=== PATIENT | female | born 1930 | race African-American/Black ===

== ENCOUNTER 2017-01-31 18:32 | Inpatient (IN) | payer OTHER ==
[~2017-01-31] VITALS: Ht 162.6 cm; Wt 68.5 kg
--- NOTE | ~2017-01-31 | EKG ---
[address] [address] ELECTROCARDIOGRAM REPORT Name: ALEXANDRA RAMIREZ Room #: 438-P DIS IN M.R.#: [id number] Admission: 01/31/17 Attend Phys: Geronimo Herzog MD Discharge: 02/08/17 Date of : [birth year] Report #: [id number] THIS REPORT FOR: //name// [facility] Test Date: 2017-02-07 Test Time: 14:51:54 Pat Name: ALEXANDRA RAMIREZ Department: Room: 438 P Gender: F Assistant Facility Manager: Adry PALACIOS : 1930 Requested By: Hao Mondragon Order Number: [id number] MD: Sonny Tse Measurements Intervals [place] Rate: 85 P: 43 VA: 133 QRS: -18 QRSD: 85 T: 4 QT: 359 QTc: 427 Interpretive Statements Sinus rhythm Inferior infarct, old Compared to ECG 03/27/2016 13:59:03 Myocardial infarct finding now present T-wave abnormality no longer present Electronically Signed On 02-11-2017 21:52:19 CDT by Sonny Tse [email or web address] <ELECTRONICALLY SIGNED> By: Sonny Tse MD 02/11/17 2152 1451 1451 Sonny Tse MD /EPI
--- NOTE | ~2017-01-31 | HC ---
[facility] [address] CONSULTATION Name: ALEXANDRA RAMIREZ Room #: 438-P ADM IN M.R.#: [id number] Admission: 01/31/17 Attend Phys: Geronimo Herzog MD Discharge: Date of : [birth year] Report #: [id number] THIS REPORT FOR: //name// CC: Krunal eHrzog REASON FOR CONSULTATION: I was asked to evaluate concerning left lower extremity nonhealing wound and cellulitis. HISTORY OF PRESENT ILLNESS: The patient is an 86-year-old with underlying history of chronic venous stasis disease, hypertension. She has had wound to the left foot and ankle for an extended period of time. She has been treated this at home with home health nursing. Wounds have worsened and hospitalized for further care. No fever, chills or sweats. She has a moderate amount of pain in the foot. The patient was not a very good historian. ALLERGIES: CLONIDINE. MEDICATIONS: As noted on her MAR, now on Zosyn and vancomycin. PAST MEDICAL HISTORY: Venous stasis disease, hypertension, hyperlipidemia and wound to her left foot and ankle. FAMILY HISTORY: Noncontributory. SOCIAL HISTORY: Nonsmoker, no significant alcohol intake. REVIEW OF SYSTEMS: Denies any cough, sputum, nausea, vomiting, diarrhea, or dysuria. PHYSICAL EXAMINATION: VITAL SIGNS: She is afebrile, hemodynamically stable. GENERAL: She was alert and cooperative and pleasant, in no acute distress. Oxygen saturation was normal on room air. HEENT: Unremarkable other than only a few teeth remaining. NECK: Supple. LUNGS: Clear. HEART: Regular, without murmur. ABDOMEN: Soft and nontender. Moderately obese. EXTREMITIES: Pulses in the left leg femoral region were normal. Diminished pulses in her feet. Had extensive granulating wound over the dorsum of her left foot and ankle region. Changes of venous stasis. 2+ edema. Sensation in the toes adequate. Reasonable capillary refill. WOUND: There was a small amount of serous drainage, no gross purulence. She had no lymphangitis going up the calf or the thigh. [facility] [address] [place] [address] CONSULTATION Name: ALEXANDRA RAMIREZ Room #: 438-P ADM IN M.R.#: [id number] Admission: 01/31/17 Attend Phys: Geronimo Herzog MD Discharge: Date of : [birth year] Report #: [id number] LABORATORY STUDIES: Sodium 134, potassium 3.6, bicarbonate 30, creatinine 1.2. Hemoglobin 9.4, WBC 11.1, platelet count 272,000. Sedimentation rate 84. Liver function test normal. Ultrasound of lower extremities are currently pending. Wound culture from the left foot wound is pending. It is noted that the arterial studies from a year ago showed no focal high grade stenosis. IMPRESSION AND PLAN: An 86-year-old with left lower extremity venous stasis ulcer, concerning for vascular disease as well. This area is nonhealing from current outpatient therapy. Recommend continuing IV antibiotic therapy pending culture results. Agree with arterial ultrasound and x-ray. We will make further recommendations pending the studies. <ELECTRONICALLY SIGNED> By: Hao Mondragon MD 02/02/17 1127 1211 1231 Hao Mondragon MD /nt
--- NOTE | ~2017-01-31 | HC ---
[facility] [place] [address] [address] CONSULTATION Name: ALEXANDRA RAMIREZ Room #: 438-P ADM IN M.R.#: [id number] Admission: 01/31/17 Attend Phys: Geronimo Herzog MD Discharge: Date of : [birth year] Report #: [id number] THIS REPORT FOR: //name// CC: Krunal Herzog DATE OF SERVICE: 02/01/2017 CHIEF COMPLAINT: Left lower extremity cellulitis and chronic ulcerations. HISTORY: This is an 86-year-old female patient with whom I am familiar, having seen her in the clinic yesterday. I discussed her care with the hospitalist and felt that she would require inpatient hospitalization for newly circumferential ulcerations of her left lower extremity with significant wound infection and surrounding cellulitis of the left lower extremity in the face of significant vascular disease. She has rested well overnight tonight and is feeling somewhat better, but states that she still has pain in her leg. PAST MEDICAL HISTORY: Positive for history of venous stasis disease, peripheral arterial disease and hyperlipidemia. FAMILY HISTORY: Noncontributory. SOCIAL HISTORY: The patient denies history of alcohol or tobacco use. ALLERGIES: TO CLONIDINE. REVIEW OF SYSTEMS: CONSTITUTIONAL: The patient denies fever, chills or weight loss. NEUROLOGICAL: The patient denies focal weakness, numbness or tingling. ENT: The patient denies earache, nasal drainage or sore throat. CARDIOVASCULAR: The patient denies chest pain, palpitations or diaphoresis. PULMONARY: The patient denies cough or shortness of breath. GASTROINTESTINAL: The patient denies nausea, vomiting, diarrhea or abdominal pain. ORTHOPEDIC: The patient complains of severe pain in her left lower extremity with drainage and odor. Other systems in a 12-point review of systems are negative. PHYSICAL EXAMINATION: VITAL SIGNS: At this time include pulse rate 83, respiratory rate of 20, blood pressure 118/61 and temperature 99.2. GENERAL: This is a chronically ill-appearing female patient, appears to be in minimal distress. [address] [address] CONSULTATION Name: ALEXANDRA RAMIREZ Room #: 438- ADM IN M.R.#: [id number] Admission: 01/31/17 Attend Phys: Geronimo Herzog MD Discharge: Date of : [birth year] Report #: [id number] HEAD: Normocephalic. NOSE AND THROAT: Clear. NECK: Supple. LUNGS: Clear. HEART: Regular rate and rhythm. ABDOMEN: Soft. Bowel sounds present. EXTREMITIES: Examination of lower extremities demonstrate nonpalpable distal pulses involving the left lower extremity. She has circumferential ulceration. The edema seems less now that her leg has been elevated. There is still surrounding erythema and tenderness. There is still drainage and odor, but it has improved since her initial hospitalization. LABORATORY DATA: Includes serum sodium 131, potassium 2.8, chloride 92 and CO2 30. BUN 9 and creatinine is 1.2. Glucose 101. White blood cell count is 12.2 with the hemoglobin of 10.4; hematocrit of 31.5 and platelet count is 300,000. Differential is 80 neutrophils, 11 lymphocytes and 7 monocytes. Sed rate is elevated at 84. Radiology reports demonstrate, x-ray of left foot demonstrates diffuse soft tissue swelling. Some questionable lucency to lateral margin of the fifth metatarsal is noted. Arterial Doppler demonstrates no blood flow identified within the left lower extremity below the knee. This has worsened since her last evaluation about a year ago, when she did have a single-vessel runoff. Wound cultures have been obtained, but are pending. CLINICAL IMPRESSION: 1. 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 2. Wound infection and surrounding left lower extremity cellulitis. 3. Severe peripheral arterial disease. RECOMMENDATIONS: At this point in time, we will consider CT angio for further evaluation of her below knee flow status and may need to consider angiography and possible intervention to improve flow. We will be very conservative with regards to compression and control of edema due to her low flow state and her left lower extremity. We will manage the edema mostly with elevation. We will recommend topical gentamicin ointment to the surface of the wound as well as Xeroform gauze with ABD and Kerlix. She has been started on Zosyn and vancomycin empirically. We will ask ID to further manage her antibiotics pending culture results. I do appreciate the opportunity to continue to care for her while here in the hospital. <ELECTRONICALLY SIGNED> By: Arik Lei MD 02/06/17 0742 1747 1841 Arik Lei MD /nt
[2017-01-31 19:30] VITALS: BP 163/69
[2017-01-31 20:19] LABS: HEMATOCRIT 31.5 % (37.0-47.0); HEMOGLOBIN 10.4 gm/dL (12.0-15.0); MCH 26.8 pg (26.0-34.0); MCHC 33.1 g/dL (28.0-37.0); MCV 80.8 fL (80.0-100.0); RBC 3.9 mil/uL (4.20-5.00); RDW 13.6 % (10.5-14.5); WBC 12.2 thou/uL (4.0-11.0)
[2017-01-31 20:35] LABS: ALBUMIN 3.1 g/dL (3.4-5.0); CALCIUM 9.2 mg/dL (8.5-10.1); CREATININE 1.2 mg/dL (0.6-1.0); TOTAL BILIRUBIN 0.4 mg/dL (<0.1-1.0); TOTAL PROTEIN 7.5 g/dL (6.4-8.2)
[2017-01-31 20:40] LABS: POTASSIUM 2.8 mmol/L (3.5-5.1)
[2017-02-01 00:24] VITALS: BP 130/63
[2017-02-01 03:11] VITALS: BP 118/61
[2017-02-01 06:26] LABS: HEMATOCRIT 27.2 % (37.0-47.0); HEMOGLOBIN 9.4 gm/dL (12.0-15.0); MCH 27.2 pg (26.0-34.0); MCHC 34.6 g/dL (28.0-37.0); MCV 78.4 fL (80.0-100.0); RBC 3.47 mil/uL (4.20-5.00); RDW 13.4 % (10.5-14.5); WBC 11.1 thou/uL (4.0-11.0)
[2017-02-01 06:34] LABS: CALCIUM 8.4 mg/dL (8.5-10.1); CREATININE 1.2 mg/dL (0.6-1.0); MAGNESIUM 1.9 mg/dL (1.8-2.4); POTASSIUM 3.6 mmol/L (3.5-5.1)
[2017-02-01 08:00] VITALS: BP 103/47
[2017-02-01 16:00] VITALS: BP 99/43
[2017-02-01 19:55] VITALS: BP 101/44
[2017-02-02 06:00] LABS: HEMATOCRIT 30.1 % (37.0-47.0); HEMOGLOBIN 10.2 gm/dL (12.0-15.0); MCH 27.6 pg (26.0-34.0); MCV 81.3 fL (80.0-100.0); PLATELET COUNT 278 thou/uL (150-400); RDW 13.8 % (10.5-14.5); WBC 9.3 thou/uL (4.0-11.0)
[2017-02-02 06:01] LABS: MANUAL DIFF YES
[2017-02-02 06:16] LABS: CALCIUM 8.5 mg/dL (8.5-10.1); CREATININE 1.3 mg/dL (0.6-1.0); POTASSIUM 3.6 mmol/L (3.5-5.1)
[2017-02-02 07:38] VITALS: BP 110/55
[2017-02-02 08:28] LABS: ABSOLUTE NEUTROPHILS 7.3 thou/uL (1.4-8.2); PLATELET ESTIMATE NORMAL; TOTAL CELL COUNT 100
[2017-02-02 16:12] VITALS: BP 140/47
[2017-02-02 19:20] VITALS: BP 100/45
[2017-02-03 05:08] VITALS: BP 112/48
[2017-02-03 08:00] VITALS: BP 114/54
[2017-02-03 16:00] VITALS: BP 106/54
[2017-02-03 19:55] VITALS: BP 100/64
[2017-02-04 04:30] VITALS: BP 105/58
[2017-02-04 07:56] VITALS: BP 112/54
[2017-02-04 16:00] VITALS: BP 94/50
[2017-02-04 18:32] VITALS: BP 95/48
[2017-02-05 04:10] VITALS: BP 114/61
[2017-02-05 07:07] LABS: HEMATOCRIT 25.9 % (37.0-47.0); HEMOGLOBIN 8.5 gm/dL (12.0-15.0); MCHC 32.8 g/dL (28.0-37.0); MCV 82.4 fL (80.0-100.0); PLATELET COUNT 267 thou/uL (150-400); RBC 3.14 mil/uL (4.20-5.00); RDW 14.4 % (10.5-14.5); WBC 5.4 thou/uL (4.0-11.0)
[2017-02-05 07:10] LABS: MANUAL DIFF YES
[2017-02-05 07:23] LABS: CALCIUM 7.8 mg/dL (8.5-10.1); CREATININE 1.2 mg/dL (0.6-1.0)
[2017-02-05 08:00] VITALS: BP 122/62
[2017-02-05 08:12] LABS: ABSOLUTE NEUTROPHILS 3.7 thou/uL (1.4-8.2); PLATELET ESTIMATE NORMAL; TOTAL CELL COUNT 100
[2017-02-05 10:44] VITALS: BP 122/62
[2017-02-05 12:10] LABS: APTT 34.3 Seconds (24.5-32.8); PROTIME 10.1 Seconds (9.3-11.4)
[2017-02-05 16:00] VITALS: BP 109/49
[2017-02-05 19:36] VITALS: BP 131/65
[2017-02-06] VITALS (7 sets, daily range): BP systolic 101–131; BP diastolic 54–64
[2017-02-06 06:36] LABS: CALCIUM 7.9 mg/dL (8.5-10.1); CREATININE 1.1 mg/dL (0.6-1.0)
[2017-02-07 03:46] LABS: HEMATOCRIT 24.2 % (37.0-47.0); HEMOGLOBIN 8.2 gm/dL (12.0-15.0); MCH 27.3 pg (26.0-34.0); MCV 80.5 fL (80.0-100.0); PLATELET COUNT 260 thou/uL (150-400); WBC 5.7 thou/uL (4.0-11.0)
[2017-02-07 03:51] VITALS: BP 103/45
[2017-02-07 03:52] LABS: CREATININE 1.1 mg/dL (0.6-1.0); POTASSIUM 4.5 mmol/L (3.5-5.1)
[2017-02-07 03:53] LABS: MANUAL DIFF YES
[2017-02-07 05:28] LABS: ABSOLUTE NEUTROPHILS 4.3 thou/uL (1.4-8.2); TOTAL CELL COUNT 100
[2017-02-07 05:29] LABS: LARGE PLATELETS OCCASIONAL
[2017-02-07 07:57] VITALS: BP 114/59
[2017-02-07] MEDS ORDERED: CLOPIDOGREL75 MG PO (09:05)
[2017-02-07] MEDS ORDERED: ADULT LOW DOSE81 MG PO (09:05)
[2017-02-07] MEDS ORDERED: HYDROCODON-ACE1 EAC7 PO ×2 (09:06→09:13)
[2017-02-07 16:00] VITALS: BP 119/61
[2017-02-07 19:50] VITALS: BP 116/64
[2017-02-08 04:00] VITALS: BP 143/84
[2017-02-08 08:48] VITALS: BP 132/58
[2017-02-08] MEDS ORDERED: CIPRO500 MG PO (08:56)
== END 2017-02-08 13:15 | DRG 271 ==
LOC: 4S 18:32
PROVIDERS: Emergency Medicine Emergency Medical Services; Family Medicine; Nurse Practitioner Family; Nurse Practitioner Gerontology; Radiology Diagnostic Radiology
PROC: B4181ZZ Fluoroscopy of Bilateral Renal Arteries using Low Osmolar Contrast (ICD-10-PCS; principal; 2017-02-06)
PROC: 04CY3ZZ Extirpation of Matter from Lower Artery, Percutaneous Approach (ICD-10-PCS; principal; 2017-02-06)
PROC: 047Q3ZZ Dilation of Left Anterior Tibial Artery, Percutaneous Approach (ICD-10-PCS; principal; 2017-02-06)
PROC: 04CU3ZZ Extirpation of Matter from Left Peroneal Artery, Percutaneous Approach (ICD-10-PCS; principal; 2017-02-06)
DX: I73.9 Peripheral vascular disease, unspecified (principal); L03.116 Cellulitis of left lower limb; L97.929 Non-pressure chronic ulcer of unspecified part of left lower leg with unspecified severity; I10 Essential (primary) hypertension; E78.5 Hyperlipidemia, unspecified; E87.6 Hypokalemia; I87.2 Venous insufficiency (chronic) (peripheral); G62.9 Polyneuropathy, unspecified; Z60.2 Problems related to living alone; D72.829 Elevated white blood cell count, unspecified; Z79.82 Long term (current) use of aspirin; Z79.899 Other long term (current) drug therapy; Z88.8 Allergy status to other drugs, medicaments and biological substances

== ENCOUNTER → 2017-01-31 | Outpatient (CLI) | payer OTHER ==
[~2017-01-31] MED LIST: CARVEDILOL25 MG PO; GABAPENTIN 100100 MG PO; MAXZIDE-25 MG1 EACH PO; ZOCOR20 MG PO
== END ==
LOC: HYPER 07:12
DX: I87.332 Chronic venous hypertension (idiopathic) with ulcer and inflammation of left lower extremity (principal); L97.821 Non-pressure chronic ulcer of other part of left lower leg limited to breakdown of skin; L97.521 Non-pressure chronic ulcer of other part of left foot limited to breakdown of skin; I70.203 Unspecified atherosclerosis of native arteries of extremities, bilateral legs; G90.09 Other idiopathic peripheral autonomic neuropathy; B95.1 Streptococcus, group B, as the cause of diseases classified elsewhere; E78.00 Pure hypercholesterolemia, unspecified; M19.90 Unspecified osteoarthritis, unspecified site; M81.0 Age-related osteoporosis without current pathological fracture; Z72.89 Other problems related to lifestyle

== ENCOUNTER → 2017-03-29 | Outpatient (CLI) | payer OTHER ==
[~2017-03-29] MED LIST changes: +ADULT LOW DOSE81 MG PO; +CIPRO500 MG PO; +CLOPIDOGREL75 MG PO; +HYDROCODON-ACE1 EAC7 PO; +IBUPROFEN 200200 M1 PO; +LASIX 20 MG TAB20 MG PO
== END ==
LOC: HYPER 07:31
DX: I87.312 Chronic venous hypertension (idiopathic) with ulcer of left lower extremity (principal); L97.821 Non-pressure chronic ulcer of other part of left lower leg limited to breakdown of skin; I70.203 Unspecified atherosclerosis of native arteries of extremities, bilateral legs; G90.09 Other idiopathic peripheral autonomic neuropathy; E78.00 Pure hypercholesterolemia, unspecified; M81.0 Age-related osteoporosis without current pathological fracture; M19.90 Unspecified osteoarthritis, unspecified site; Z72.89 Other problems related to lifestyle; Z86.19 Personal history of other infectious and parasitic diseases

== ENCOUNTER 2017-04-03 11:17 | Inpatient (IN) | payer OTHER ==
[~2017-04-03] VITALS: Ht 162.6 cm; Wt 67.6 kg
--- NOTE | ~2017-04-03 | O ---
[facility] [place] [address] [address] [place] [address] OPERATIVE REPORT Name: ALEXANDRA RAMIREZ Room #: 435-P [facility] IN M.R.#: [id number] Admission: 04/03/17 Attend Phys: Fer Gonzales DO Discharge: Date of : [birth year] Report #: [id number] THIS REPORT FOR: //name// CC: Krunal Gonzales DATE OF SERVICE: 04/04/2017 PREOPERATIVE DIAGNOSIS: Right subtrochanteric femur fracture, comminuted. POSTOPERATIVE DIAGNOSIS: Right subtrochanteric femur fracture, comminuted. PROCEDURE PERFORMED: Intramedullary nailing of right subtrochanteric femur fracture. SURGEON: Torin Gallego M.D. SOFTWARE COMPUTER SPECIALIST: Giselle Begum PA-C. ANESTHESIA: General. FLUIDS: 650 mL crystalloid, 1 unit packed red blood cells. ESTIMATED BLOOD LOSS: 350 mL. URINE OUTPUT: 350 mL. IMPLANTS UTILIZED: Synthes long TFN nail 10 mm x 360 mm x 135 degrees, 85 mm helical blade and 2 distal 50 mm locking screws. DESCRIPTION OF PROCEDURE: After proper identification of the patient and the operative site in preoperative holding area, the operative site was signed by myself. Prophylactic antibiotics given. We reviewed the risks, benefits, alternatives and potential complications of her injury as well as treatment. The patient and her family wished to proceed with operative intervention. The patient was brought back to the operative suite after induction of satisfactory general endotracheal anesthesia. She was carefully positioned on Sk[place]man fracture table. A well-padded foot stabilization traction was utilized. The patient's fracture reduced nicely with gentle longitudinal traction of the leg. The right lower extremity was sterilely prepped and draped in the usual manner. Final skin draping was with Ioban. Greater trochanter was identified. An incision proximal to the greater trochanter was planned. Skin was incised sharply. Full thickness skin flaps were developed. Fascia was incised longitudinally and an insertion awl was placed about the tip of the greater trochanter using C-arm for guidance. The awl was carefully advanced into the proximal femur and a guidewire was inserted through the proximal fragment and on the first attempt, [facility] [address] [place] [address] OPERATIVE REPORT Name: ALEXANDRA RAMIREZ Room #: 435-P ADM IN M.R.#: [id number] Admission: 04/03/17 Attend Phys: Fer Gonzales DO Discharge: Date of : [birth year] Report #: [id number] it also successfully passed the comminuted portion of the subtrochanteric region into the distal shaft. This was verified in the AP and lateral planes. Next, a small incision in the more comminuted region of the shaft fracture was made where the skin was incised sharply, fascia was incised longitudinally and a single tooth bone holding clamp was carefully placed around this to help stabilize this mid portion. Nail was measured to be 360 mm in length. Femur was sequentially reamed up to 11 mm to accommodate a 10 mm nail. Extensive degenerative changes of the hip was noted preoperatively and intraoperatively without any obvious acute fractures of the head or neck. At this point, the 10 mm nail was carefully advanced over the guidewire into the femur. The overall alignment of the fracture as well as the hardware placement was satisfactory. Next helical blade drill sleeves were placed through the more distally based incision to the lateral cortex of the femur. A guide pin was inserted into the femoral head, checking in the AP and lateral planes. Once this was satisfactorily positioned, it was measured to be 85 mm. Outer cortex was reamed and the helical blade was carefully advanced into position. It was deemed to be in satisfactory position. Proximal locking screw was tightened and distally using perfect [place] technique, 2 distal locking screws, 1 through the static hole, 1 through the dynamic hole were placed. These were checked in the AP and lateral planes and deemed to be in satisfactory position as well. The overall fracture alignment appeared to be well reduced and satisfactory in nature. Wounds were thoroughly irrigated with normal saline. The insertion handle was removed. Fascia was repaired with #1 Vicryl, 2-0 Vicryl with the subcutaneous tissues and final skin closure was with torsten. Sterile dressing was applied. She was awakened and transferred to the recovery room in stable condition. By: 1201 1305 Torin Gallego MD /zahc
--- NOTE | ~2017-04-03 | HC ---
[facility] [place] [address] CONSULTATION Name: ALEXANDRA RAMIREZ Room #: 435-P ADM IN M.R.#: [id number] Admission: 04/03/17 Attend Phys: Fer Gonzales DO Discharge: Date of : [birth year] Report #: [id number] THIS REPORT FOR: //name// CC: Krunal Gonzales DATE OF SERVICE: 04/03/2017 CHIEF COMPLAINT: Right hip pain. HISTORY OF PRESENT ILLNESS: The patient reports that she fell on Sunday and was unable to get up due to pain in the right hip. She presented to the emergency department today with increased pain in the right hip area. She had x-rays performed here and was found to have a proximal right femur fracture and was subsequently admitted to [facility]. The patient does not remember how or why she fell, just that she fell and was unable to get up after this. PAST MEDICAL HISTORY: Significant for hypertension, hyperlipidemia, and left lower extremity ulcer. SOCIAL HISTORY: The patient denies any drug or alcohol use. HOME MEDICATIONS: Please see medical records, but includes clopidogrel, aspirin, and [place] 5/325. ALLERGIES: CLONIDINE. PHYSICAL EXAMINATION: GENERAL: The patient is awake and alert, in no acute distress. VITAL SIGNS: Temperature 36.8 degrees Celsius, blood pressure 145/62, and pulse 102. EXTREMITIES: Right lower extremity is shortened and internally rotated compared to left. The calf is soft and nontender. Right lower extremity is neurovascularly intact. Tenderness to palpation about the right hip. IMAGING: Displaced fracture of the proximal right femur. Severe right hip joint arthrosis. LABS: Hemoglobin 9.4, white cell count 11.7. Potassium 3.3, creatinine 1.3, glucose 151. UA shows trace proteins and trace ketones. ASSESSMENT: 1. Right proximal femur fracture. 2. Multiple comorbidities including leukocytosis, hypertension. [facility] [address] [place] [address] CONSULTATION Name: ALEXANDRA RAMIREZ Room #: 435-P [facility] IN .R.#: [id number] Admission: 04/03/17 Attend Phys: Fer Gonzales DO Discharge: Date of : [birth year] Report #: [id number] PLAN: Discussed the patient's diagnosis and treatment options with the patient today and pending medical clearance, we discussed performing a right hip trochanteric femoral nail for fracture fixation with the patient. Discussed the need for physical and occupation therapy following surgery. The patient reports that she thinks that she has not taken her home medications since she fell and has possibly been off of the clopidogrel and aspirin since last . We will continue to hold these and plan for operative intervention tomorrow pending medical clearance. <ELECTRONICALLY SIGNED> By: LAURIE Briones 04/05/17 0833 1422 1604 LAURIE Briones /nt
--- NOTE | ~2017-04-03 | HC ---
[facility] [place] [address] CONSULTATION Name: ALEXANDRA RAMIREZ Room #: 435-P ADM IN M.R.#: [id number] Admission: 04/03/17 Attend Phys: Fer Gonzales DO Discharge: Date of : [birth year] Report #: [id number] THIS REPORT FOR: //name// CC: Krunal Gonzales DATE OF SERVICE: 04/05/2017 CHIEF COMPLAINT: Ulceration to the left lower leg and surgical wound, right hip. HISTORY OF PRESENT ILLNESS: This is an 87-year-old female with whom I am familiar she is readmitted after sustaining a subtrochanteric fracture of her left hip. She is status post operative repair. I have been asked to see her with regard to wound care. The patient is confused likely due to the effects of pain medication, cannot coherently answer any questions at this point in time. PAST MEDICAL HISTORY: Positive for hypertension, hyperlipidemia and left lower extremity ulceration. SOCIAL HISTORY: Negative for alcohol or tobacco use. MEDICATIONS: Include clopidogrel, aspirin, and [place]. ALLERGIES: CLONIDINE. FAMILY HISTORY: Noncontributory. REVIEW OF SYSTEMS: Not obtainable due to the patient's level of confusion at this time. PHYSICAL EXAMINATION: VITAL SIGNS: Include pulse 101, respiratory rate of 20, blood pressure 104/49, and temperature 98.0. GENERAL: This is a chronically ill-appearing female patient who appears to be in no distress. HEENT: Head normocephalic. Nose and throat are clear. NECK: Supple. LUNGS: Clear. HEART: Regular rate and rhythm. ABDOMEN: Soft. Bowel sounds present. EXTREMITIES: Demonstrate surgical incision line along the right hip. There is some oozing present. No evidence of infection. Left lower extremity demonstrates too small venous type ulceration on the left lateral lower leg. [facility] [address] [place] [address] CONSULTATION Name: ALEXANDRA RAMIREZ Room #: 435-P ADM IN [place]#: [id number] Admission: 04/03/17 Attend Phys: Fer Gonzales DO Discharge: Date of : [birth year] Report #: [id number] CLINICAL IMPRESSION: 1. Right hip fracture, status post open reduction and internal fixation. 2. Venous ulceration, left lower extremity. 3. Hypertension. 4. Protein-calorie malnutrition. RECOMMENDATIONS: At this point in time, we will place a ELIGIO VAC along the incision line to help prevent hematoma formation and to assist with healing. We will recommend Silvadene, morphine, Xeroform, and Kerlix to the left lower extremity. She will need Prevalon boots while in bed. I appreciate being asked to see her in consultation. <ELECTRONICALLY SIGNED> By: Arik Lei MD 04/06/17 0917 1853 19 Arik Lei MD /nt
[~2017-04-03 11:17] MED LIST changes: -IBUPROFEN 200200 M1 PO; -LASIX 20 MG TAB20 MG PO
[2017-04-03 11:18] VITALS: BP 147/57
[2017-04-03] MEDS ORDERED: LASIX 20 MG TAB20 MG PO (11:24)
[2017-04-03] MEDS ORDERED: IBUPROFEN 200200 M1 PO (11:26)
[2017-04-03 12:09] LABS: HEMOGLOBIN 9.4 gm/dL (12.0-15.0); MCHC 32.5 g/dL (28.0-37.0); MCV 79.8 fL (80.0-100.0); RBC 3.63 mil/uL (4.20-5.00); RDW 15.8 % (10.5-14.5); WBC 11.7 thou/uL (4.0-11.0)
[2017-04-03 12:16] LABS: CALCIUM 8.7 mg/dL (8.5-10.1); CREATININE 1.3 mg/dL (0.6-1.0); POTASSIUM 3.3 mmol/L (3.5-5.1)
[2017-04-03 12:26] LABS: INR 1.1; PROTIME 10.9 Seconds (9.3-11.4)
[2017-04-03 12:35] LABS: APTT 26.5 Seconds (24.5-32.8)
[2017-04-03 13:13] VITALS: BP 147/57
[2017-04-03 13:19] LABS: URINE BLOOD NEGATIVE (Negative); URINE COLOR YELLOW; URINE GLUCOSE-RANDOM* NEGATIVE (Negative); URINE KETONES TRACE (Negative); URINE LEUKOCYTES-REFLEX NEGATIVE (Negative); URINE PROTEIN (DIPSTICK) TRACE (Negative); URINE UROBILINOGEN 0.2 E.U./dl (0.2-1.0)
[2017-04-03 13:21] LABS: ICTOTEST (BILI CONFIRMATORY) Negative (Negative); URINE BILIRUBIN NEGATIVE (Negative)
[2017-04-03 13:33] VITALS: BP 142/55
[2017-04-03 13:58] VITALS: BP 145/62
[2017-04-03 16:00] VITALS: BP 141/65
[2017-04-03 21:12] VITALS: BP 114/75
[2017-04-04] VITALS (8 sets, daily range): BP systolic 110–160; BP diastolic 49–140
[2017-04-04 06:20] LABS: HEMATOCRIT 20.3 % (37.0-47.0); MCH 26.3 pg (26.0-34.0); MCHC 33.2 g/dL (28.0-37.0); MCV 79.2 fL (80.0-100.0); PLATELET COUNT 154 thou/uL (150-400); RBC 2.57 mil/uL (4.20-5.00); RDW 15.7 % (10.5-14.5); WBC 8.7 thou/uL (4.0-11.0)
[2017-04-04 06:21] LABS: CALCIUM 7.7 mg/dL (8.5-10.1); HEMOGLOBIN 6.8 gm/dL (12.0-15.0); POTASSIUM 3.5 mmol/L (3.5-5.1)
[2017-04-04 06:22] LABS: MANUAL DIFF YES
[2017-04-04 07:29] LABS: HEMATOCRIT 20.6 % (37.0-47.0); HEMOGLOBIN 6.8 gm/dL (12.0-15.0)
[2017-04-04 08:38] LABS: TOTAL CELL COUNT 100
[2017-04-04 08:39] LABS: ANISOCYTOSIS 1+; OVALOCYTES FEW
[2017-04-05 03:43] VITALS: BP 125/52
[2017-04-05 08:00] VITALS: BP 124/55
[2017-04-05 08:02] VITALS: BP 124/55
[2017-04-05 16:17] VITALS: BP 104/49
[2017-04-05 19:12] VITALS: BP 107/43
[2017-04-05 20:05] VITALS: BP 107/43
[2017-04-06 04:21] VITALS: BP 130/61
[2017-04-06 07:27] VITALS: BP 127/54
[2017-04-06 16:58] VITALS: BP 138/56
[2017-04-06 20:00] VITALS: BP 150/57
[2017-04-06 20:05] VITALS: BP 150/57
[2017-04-07 03:37] VITALS: BP 136/62
[2017-04-07 04:49] LABS: HEMATOCRIT 21.4 % (37.0-47.0); HEMOGLOBIN 7.2 gm/dL (12.0-15.0); MCH 26.9 pg (26.0-34.0); MCHC 33.6 g/dL (28.0-37.0); MCV 80.1 fL (80.0-100.0); RBC 2.67 mil/uL (4.20-5.00); RDW 15.5 % (10.5-14.5); WBC 9.2 thou/uL (4.0-11.0)
[2017-04-07 05:00] LABS: CALCIUM 7.2 mg/dL (8.5-10.1); CREATININE 0.9 mg/dL (0.6-1.0); POTASSIUM 3.8 mmol/L (3.5-5.1)
[2017-04-07 08:00] VITALS: BP 132/62
[2017-04-07 09:17] VITALS: BP 132/62
[2017-04-07 16:00] VITALS: BP 129/51
[2017-04-07 19:50] VITALS: BP 137/57
[2017-04-07 20:20] VITALS: BP 137/57
[2017-04-08 04:11] VITALS: BP 147/67
[2017-04-08 07:52] VITALS: BP 141/49
[2017-04-08 08:08] LABS: WBC 7.6 thou/uL (4.0-11.0)
[2017-04-08 08:09] LABS: MCH 27.5 pg (26.0-34.0); MCHC 34.4 g/dL (28.0-37.0); MCV 79.9 fL (80.0-100.0); RBC 2.27 mil/uL (4.20-5.00)
[2017-04-08 08:12] LABS: HEMATOCRIT 18.2 % (37.0-47.0); HEMOGLOBIN 6.2 gm/dL (12.0-15.0)
[2017-04-08 08:17] LABS: CALCIUM 7.5 mg/dL (8.5-10.1); CREATININE 0.9 mg/dL (0.6-1.0); POTASSIUM 3.6 mmol/L (3.5-5.1)
[2017-04-08 11:24] VITALS: BP 121/49; BP 136/60
[2017-04-08 14:00] VITALS: BP 141/49
[2017-04-08 14:33] VITALS: BP 121/49; BP 122/52; BP 134/51
[2017-04-08 15:02] VITALS: BP 145/69
[2017-04-08 19:31] LABS: HEMOGLOBIN 9.3 gm/dL (12.0-15.0)
[2017-04-09 04:08] VITALS: BP 146/67
[2017-04-09 06:08] LABS: HEMATOCRIT 27.7 % (37.0-47.0); HEMOGLOBIN 9.4 gm/dL (12.0-15.0); MCH 28.2 pg (26.0-34.0); PLATELET COUNT 231 thou/uL (150-400); RBC 3.34 mil/uL (4.20-5.00); RDW 16.2 % (10.5-14.5); WBC 10.8 thou/uL (4.0-11.0)
[2017-04-09 06:13] LABS: MANUAL DIFF YES
[2017-04-09 06:24] LABS: CALCIUM 8.3 mg/dL (8.5-10.1); CREATININE 0.9 mg/dL (0.6-1.0); POTASSIUM 3.7 mmol/L (3.5-5.1)
[2017-04-09 08:00] VITALS: BP 139/57
[2017-04-09 08:30] LABS: ABSOLUTE NEUTROPHILS 8.6 thou/uL (1.4-8.2); PLATELET ESTIMATE NORMAL; TOTAL CELL COUNT 100
[2017-04-09] MEDS ORDERED: OXYCODONE-APAP1 EAC6 PO (08:41)
[2017-04-09 15:25] VITALS: BP 139/57
[2017-04-09 16:00] VITALS: BP 145/65
[2017-04-09 20:04] VITALS: BP 143/62
[2017-04-10 04:19] VITALS: BP 188/76
[2017-04-10 06:28] LABS: CALCIUM 8.6 mg/dL (8.5-10.1); CREATININE 0.8 mg/dL (0.6-1.0); POTASSIUM 3.7 mmol/L (3.5-5.1)
[2017-04-10 06:29] LABS: MCH 28.4 pg (26.0-34.0); MCHC 34.4 g/dL (28.0-37.0); MCV 82.6 fL (80.0-100.0); RBC 3.51 mil/uL (4.20-5.00); RDW 16.1 % (10.5-14.5); WBC 9.2 thou/uL (4.0-11.0)
[2017-04-10 07:39] VITALS: BP 170/90
[2017-04-10 16:05] VITALS: BP 140/86
[2017-04-10 20:02] VITALS: BP 166/71
[2017-04-11 04:12] VITALS: BP 150/66
[2017-04-11 08:00] VITALS: BP 168/70
== END 2017-04-11 16:44 | DRG 480 ==
LOC: ER 11:17 → EROBS 12:28 → 4S 12:28
PROVIDERS: Emergency Medicine; Family Medicine; Nurse Practitioner Acute Care; Nurse Practitioner Family
PROC: 0QH606Z Insertion of Intramedullary Internal Fixation Device into Right Upper Femur, Open Approach (ICD-10-PCS; principal; 2017-04-04)
PROC: 30233N1 Transfusion of Nonautologous Red Blood Cells into Peripheral Vein, Percutaneous Approach (ICD-10-PCS; 2017-04-04)
DX: S72.21XA Displaced subtrochanteric fracture of right femur, initial encounter for closed fracture (principal); N17.0 Acute kidney failure with tubular necrosis; M62.82 Rhabdomyolysis; L97.929 Non-pressure chronic ulcer of unspecified part of left lower leg with unspecified severity; E44.1 Mild protein-calorie malnutrition; I10 Essential (primary) hypertension; E78.5 Hyperlipidemia, unspecified; Z68.25 Body mass index [BMI] 25.0-25.9, adult; D72.829 Elevated white blood cell count, unspecified; D64.9 Anemia, unspecified; Z60.2 Problems related to living alone; Z79.82 Long term (current) use of aspirin; Z88.8 Allergy status to other drugs, medicaments and biological substances; K59.00 Constipation, unspecified; W18.39XA Other fall on same level, initial encounter; Y93.89 Activity, other specified; Z79.899 Other long term (current) drug therapy; Y92.098 Other place in other non-institutional residence as the place of occurrence of the external cause; Y99.8 Other external cause status
CPT/HCPCS: 10195; 50010; 50101; 50133; 50386; 50635; 51412; 51538; 51817; 52304; 55445; 56525; 57092; 62110; 62900; 70005